=== PATIENT | female | born 2000 | race Caucasian/White ===

== ENCOUNTER 2022-09-07 03:51 | Emergency (ER) | payer SELFPAY ==
[~2022-09-07] VITALS: Ht 160 cm; Wt 49.9 kg
[2022-09-07 03:51] VITALS: BP 116/72
--- NOTE | 2022-09-07 03:51 | NUR ---
pt bibfamily c/o epigastric pain since yesterday, unrelived by OTC meds. denies n/v
--- NOTE | 2022-09-07 04:15 | NUR ---
DR. LYLY COFFEY AT PT'S BEDSIDE
[2022-09-07] MEDS ORDERED: LIDOCAINE VISCOUS 2% UD 15 ML UDC ONE (04:19)
[2022-09-07] MEDS ORDERED: MAG HYDROX/AL HYDROX/SIMETH 30 ML UDC ONE (04:19)
[2022-09-07] MEDS ORDERED: MAG HYDROX/AL HYDROX/SIMETH 30 ML UDC PO ONE (04:30)
[2022-09-07] MEDS ORDERED: LIDOCAINE VISCOUS 2% UD 15 ML UDC MM ONE (04:30)
--- NOTE | 2022-09-07 04:46 | NUR ---
Patient discharged to home in stable condition. Written and verbal after care instructions given. Patient verbalizes understanding of instruction.
== END 2022-09-07 04:54 | disposition home or self-care (01) ==
LOC: ER 03:54
DX: K21.9 Gastro-esophageal reflux disease without esophagitis (principal); R10.13 Epigastric pain